=== PATIENT | male | born 1995 | race Caucasian/White ===

== ENCOUNTER 2017-07-17 01:39 | Emergency (ER) | payer OTHER ==
[~2017-07-17] VITALS: Ht 180.3 cm; Wt 79.4 kg
[2017-07-17 01:39] VITALS: TEMP 36.4; Ht 180.3 cm; Wt 79.4 kg
[~2017-07-17 01:39] MED LIST: CARB1DRO22 OPB
[2017-07-17] MEDS ORDERED: LORAZEPAM 2 MG/ML 1 ML VIAL IV STA (01:48)
[2017-07-17] MEDS ORDERED: SODIUM CHLORIDE 0.9% 1000ML 1,000 ML IV STA (01:48)
[2017-07-17 04:03] LABS: BASO % 0.4 %; BASO ABS # 0.04 K/uL (0-0.2); COMPLETE YES; EOS % 1.4 %; HEMATOCRIT 45.1 % (42-52); IG% 0.6 %; LYMPH % 48.4 %; LYMPH ABS # 4.85 K/uL (1.2-3.4); MEAN CELL VOLUME 82.3 fL (80-100); MEAN CORPUSCULAR HEMOGLOBIN 29.2 pg (25-34); MEAN CORPUSCULAR HGB CONC 35.5 g/dl (32-36); MONO % 7.3 %; NEUT % 41.9 %; PLATELET COUNT 222 K/uL (130-400); RED BLOOD COUNT 5.48 M/uL (4.7-6.1); WHITE BLOOD COUNT 10.03 K/uL (4.8-10.8)
[2017-07-17 04:28] LABS: BLOOD UREA NITROGEN 12 mg/dl (7-18); BUN/CREATININE RATIO 9.7 (10-20); CALCIUM 8.4 mg/dl (8.5-10.1); CARBON DIOXIDE 29 mmol/L (21-32); CHLORIDE 103 mmol/L (98-107); GLUCOSE 126 mg/dl (70-99); SODIUM 141 mmol/L (136-145)
[2017-07-17 04:30] LABS: POTASSIUM 3.5 mmol/L (3.5-5.1)
--- NOTE | 2017-07-17 05:54 | EMERGENCY ROOM VISIT NOTE ---
History Report prepared by Jayeibeve: Eddi Salazar Under the Supervision of: Dr. Brendon Mosqueda M.D. First contact with patient: 01:42 Chief Complaint: OVERDOSE (INTENTIONAL) Stated Complaint: OVERDOSE History of Present Illness The patient is a 22 year old male who presents to the Emergency Room by EMS with complaints of constant drug intoxication beginning shortly prior to arrival. He states that he was given a pill that he was told contained marijuana. He denies drinking any alcohol. The patient denies trying to harm himself, and states that he took the drug recreationally. He states that he feels very anxious. HPI limited secondary to drug intoxication. Source of History: patient History Limited By: intoxication Onset: shortly prior to arrival Quality: other (drug intoxication) Timing: constant Review of Systems ROS limited secondary to drug intoxication. Past Medical & Surgical Medical Problems: (1) No Known Active Medical Problems Surgical Problems: (1) S/P nasal surgery Family History No pertinent family history stated. Social History Smoking Status: Never Smoker Alcohol Use: none Drug Use: none Marital Status: single Housing Status: lives with roommate Occupation Status: [employer] student Current/Historical Medications No Active Prescriptions or Reported Meds Allergies Coded Allergies: Benzalkonium Chloride (Unverified Allergy, Intermediate, RED, ITCHY EYES, 07/17/17) Ketotifen (Unverified Allergy, Intermediate, RED, ITCHY EYES, 07/17/17) Physical Exam Vital Signs Date Time Temp Pulse Resp B/P (MAP) Pulse Ox O2 Delivery O2 Flow Rate FiO2 07/17/17 06:35 66 16 106/51 97 Room Air 07/17/17 06:11 62 14 96 Room Air 07/17/17 06:01 104/41 07/17/17 05:41 69 07/17/17 05:41 65 14 95 07/17/17 05:31 103/48 07/17/17 05:11 63 13 94 07/17/17 05:06 65 14 94 Room Air 07/17/17 05:01 102/43 07/17/17 04:36 72 17 96 07/17/17 04:31 109/49 07/17/17 04:06 72 29 95 07/17/17 04:01 98/45 07/17/17 04:00 71 22 96 Room Air 07/17/17 03:31 110/54 07/17/17 03:30 75 24 97 07/17/17 01:51 94 07/17/17 01:39 36.4 108 21 113/68 98 Room Air Physical Exam GENERAL: Patient is well appearing and in no acute distress. Holding vomit bag to face. Refusing to look at me while speaking. HEENT: No acute trauma, normocephalic atraumatic, mucous membranes moist, no nasal congestion, no scleral icterus. NECK: No stridor, no adenopathy, no meningismus, trachea is midline. LUNGS: No dyspnea. Clear to auscultation and equal bilaterally. No wheeze, no rhonchi. HEART: Mildly tachycardic rate with a regular rhythm. No murmurs, rubs, gallops appreciated. ABDOMEN: Soft, nontender, bowel sounds positive, no masses appreciated, no peritonitis. BACK: No midline tenderness, no CVA tenderness EXTREMITIES: Normal motion all extremities, no cyanosis, no edema. NEUROLOGIC: Alert and oriented, no acute motor or sensory deficits, no focal weakness, cranial nerves grossly intact. SKIN: No rash, no jaundice, no diaphoresis. Medical Decision & Procedures Laboratory Results 07/17/17 01:50 Red Blood Count 5.48, Mean Corpuscular Volume 82.3, Mean Corpuscular Hemoglobin 29.2, Mean Corpuscular Hemoglobin Concent 35.5, Mean Platelet Volume 11.0, Neutrophils (%) (Auto) 41.9, Lymphocytes (%) (Auto) 48.4, Monocytes (%) (Auto) 7.3, Eosinophils (%) (Auto) 1.4, Basophils (%) (Auto) 0.4, Neutrophils # (Auto) 4.21, Lymphocytes # (Auto) 4.85, Monocytes # (Auto) 0.73, Eosinophils # (Auto) 0.14, Basophils # (Auto) 0.04 07/17/17 01:50 07/17/17 02:32 Test 07/17/17 01:50 07/17/17 02:32 White Blood Count 10.03 K/uL (4.8-10.8) Red Blood Count 5.48 M/uL (4.7-6.1) Hemoglobin 16.0 g/dL (14.0-18.0) Hematocrit 45.1 % (42-52) Mean Corpuscular Volume 82.3 fL (80-100) Mean Corpuscular Hemoglobin 29.2 pg (25-34) Mean Corpuscular Hemoglobin Concent 35.5 g/dl (32-36) Platelet Count 222 K/uL (130-400) Mean Platelet Volume 11.0 fL (7.4-10.4) Neutrophils (%) (Auto) 41.9 % Lymphocytes (%) (Auto) 48.4 % Monocytes (%) (Auto) 7.3 % Eosinophils (%) (Auto) 1.4 % Basophils (%) (Auto) 0.4 % Neutrophils # (Auto) 4.21 K/uL (1.4-6.5) Lymphocytes # (Auto) 4.85 K/uL (1.2-3.4) Monocytes # (Auto) 0.73 K/uL (0.11-0.59) Eosinophils # (Auto) 0.14 K/uL (0-0.5) Basophils # (Auto) 0.04 K/uL (0-0.2) RDW Standard Deviation 40.8 fL (36.4-46.3) RDW Coefficient of Variation 13.6 % (11.5-14.5) Immature Granulocyte % (Auto) 0.6 % Immature Granulocyte # (Auto) 0.06 K/uL (0.00-0.02) Anion Gap 9.0 mmol/L (3-11) Est Creatinine Clear Calc Drug Dose 102.8 ml/min Estimated GFR () 98.9 Estimated GFR (Non- 85.3 BUN/Creatinine Ratio 9.7 (10-20) Calcium Level 8.4 mg/dl (8.5-10.1) Chemistry Specimen Hemolysis Ethyl Alcohol mg/dL < 3.0 mg/dl (0-3) Laboratory results as reviewed by me. Medications Administered Medications (Trade) Dose Ordered Sig/Marisela Route Start Time Stop Time Status Last Admin Dose Admin Sodium Chloride 1,000 ml @ 999 mls/hr Q1H1M STAT IV 07/17/17 01:48 07/17/17 03:05 DC 07/17/17 02:02 999 MLS/HR Lorazepam (Ativan Inj) 0.5 mg NOW STAT IV 07/17/17 01:48 07/17/17 01:49 DC 07/17/17 02:02 0.5 MG ECG Indication: toxicologic Rate (beats per minute): 97 Rhythm: normal sinus Findings: RBBB, no acute ischemic change, no ectopy ED Course 0143: The patient was evaluated in room B7. A complete history and physical exam was performed. 0148: Ordered Ativan Inj 0.5 mg IV, Sodium Chloride 1000 ml @ 999 mls/hr IV. 0534: I reassessed the patient. He is sleeping and in no distress. Medical Decision Differential: Accidental ingestion, Illicit Drug Use, Suicide Attempt, Poisoning , Prolonged QTc, Metabolic/Electrolyte imbalance, amongst other pathologies entertained. 22 yr old male arrives anxious and nauseous, quite upset after taking illicit marijuana tablet. Feeling better after ativan/fluids and sleeping soundly. Labs OK. Vitals normal. Sleeping for several hours. He is adamant about this not being suicidal. Denies any thoughts of harm to self/others. States no drug addiction issues. Denies need for rehab. I discussed the dangers of illicit drug use and the need to avoid this in the future. Stressed hydration/ rest and which symptoms requiring RTED. This patient was seen during [facility] down-time and chart completed at later date/time. Please note that times of orders, medications, and testing as well as re-evaluations and consultations may not accurately reflect actual times they were placed/preformed. Medication Reconcilliation Current Medication List: was personally reviewed by me Blood Pressure Screening Patient's blood pressure: Normal blood pressure Blood pressure disposition: Did not require urgent referral Impression Primary Impression: Illicit drug use Additional Impressions: Adverse reaction to drug Vomiting Scribe Attestation The scribe's documentation has been prepared under my direction and personally reviewed by me in its entirety. I confirm that the note above accurately reflects all work, treatment, procedures, and medical decision making performed by me. Departure Information Dispostion Home / Self-Care Prescriptions No Active Prescriptions or Reported Meds Referrals [facility] (PCP) Patient Instructions My [facility] Additional Instructions Do not use illegal drugs or medications not prescribed to you. There are serious, severe health consequences that can result from doing so. If you feel you have a problem with drug addiction please discuss this with your family, [facility], or your primary care provider. We are always here to help in the emergency department. Keep well hydrated and rest over the next 24 hours. Problem Qualifiers
[2017-07-17 06:35] VITALS: BP 106/51; PULSE 66; O2SAT 97
== END 2017-07-17 06:57 | disposition home or self-care (01) ==
LOC: EDBD 01:39 → C.EDB 01:42
DX: T40.7X1A Poisoning by cannabis (derivatives), accidental (unintentional), initial encounter (principal); R11.10 Vomiting, unspecified; I45.10 Unspecified right bundle-branch block; Z98.890 Other specified postprocedural states; Z88.8 Allergy status to other drugs, medicaments and biological substances